=== PATIENT | male | born 1955 | race Caucasian/White ===

== ENCOUNTER 2019-10-21 13:56 | Emergency (ER) | payer BC, SELFPAY ==
--- NOTE | 2019-10-21 14:02 | ED.GENADULT ---
HPI - General Adult General Chief complaint: Extremity Injury, Lower Stated complaint: right knee injury Time Seen by Provider: 10/21/19 14:13 Source: patient Mode of arrival: ambulatory Limitations: no limitations History of Present Illness HPI narrative: 63-year-old male patient presents the [facility] care with complaints of a wound to the right knee x2 days. Patient states that he was on his hands and knees taking apart some pallets and states that he thinks he caught a nail to his right knee. Patient states he has been able to walk on it okay. Patient states it is slightly sore but did not have any pain with movement. Patient denies taking anything for the pain at this time. Patient states he has been using some hydrogen peroxide to clean the area. Patient states he thinks his last tetanus shot was around 6 years ago. Patient states he is here because he is concerned about possible infection. Denies being a diabetic Related Data Allergies Allergy/AdvReac Type Severity Reaction Status Date / Time No Known Allergies Allergy Mild Verified 10/21/19 14:05 Review of Systems Review of Systems: Narrative: CONSTITUTIONAL: Denies fever, chills, or sweats. EYES: Denies visual changes, redness, or discharge. ENT: Denies rhinorrhea, congestion, sore throat, or otalgia. CARDIOVASCULAR: Denies chest pain, palpitations, or edema. RESPIRATORY: Denies cough or dyspnea. GASTROINTESTINAL: Denies abdominal pain, nausea, vomiting, or diarrhea. GENITOURINARY: Denies dysuria or hematuria. SKIN: Denies rash or itching. Positive puncture wound to right knee x2 days MUSCULOSKELETAL: Denies back pain, joint pain, or myalgia. NEUROLOGIC: Denies headache, numbness, or weakness. PSYCHIATRIC: Denies anxiety or depression. PMFSH Past Medical History Medical History (Updated 10/21/19 @ 14:17 by RAFAEL Villafuerte) Hypothyroidism Surgical History Surgical History (Updated 10/21/19 @ 14:03 by RAFAEL Villafuerte) Hx of tonsillectomy Comments At the time of my signature I agree with nursing past medical history, surgical, social, and family history. There is no relevant family history pertinent to the presenting complaint. Exam Narrative: Exam Narrative: GENERAL: Well-appearing, well-nourished, and in no acute distress. HEAD: Normocephalic, atraumatic. EYES: PERRLA and EOMI. ENT: Nares clear, no rhinorrhea or epistaxis. Mucous membranes moist. NECK: Supple. No lymphadenopathy CHEST: Clear to auscultation. No respiratory distress. HEART: Regular rate and rhythm. No murmur heard. Normal peripheral pulses. ABDOMEN: Soft, nontender, nondistended, normal active bowel sounds. EXTREMITIES: Normal range of motion. No edema. SKIN: Warm, dry, no rash. Patient has small puncture wound that is scabbed over right on the top of the right patella. There is some surrounding erythema, some warmth and slight swelling. Patient has excellent range of motion to the knee and able to walk with a steady gait. NEURO: No focal deficits. Alert and oriented x3. Course Vital Signs Vital signs: Vital Signs Temperature 36.8 C 10/21/19 14:05 Pulse Rate 86 10/21/19 14:05 Respiratory Rate 18 10/21/19 14:05 Blood Pressure 123/77 10/21/19 14:05 Pulse Oximetry 98 10/21/19 14:05 Temperature 36.8 C 10/21/19 14:05 Pulse Rate 86 10/21/19 14:05 Respiratory Rate 18 10/21/19 14:05 Blood Pressure 123/77 10/21/19 14:05 Pulse Oximetry 98 10/21/19 14:05 Vital signs reviewed. Medical Decision Making Differential Diagnosis Differential Diagnosis: Differential diagnosis: Knee contusion, sprain, ligament injury, patellar dislocation, joint dislocation, patella or tibial plateau fracture, Abbott's cyst, DVT, meniscus tear, PCL tear, prepatellar bursitis, septic joint, gout, tumor. Children: [id number] or All-Schlatter disease. Discussed with patient that our plan of care today is to update his tetanus shot today. Discussed with hi
[2019-10-21 14:05] VITALS: BP 123/77; PULSE 86; RESP 18; TEMP 36.8; O2SAT 98
[2019-10-21] MEDS: TETANUS,DIPHTHERIA,AC PERTUSSIS ADULT 0.5 ML (ADACEL) IM (14:20)
== END 2019-10-21 14:20 | disposition home or self-care (01) ==
PROVIDERS: Emergency Provider Nurse Practitioner Family; PCP Family Medicine
DX: S81.031A Puncture wound without foreign body, right knee, initial encounter (principal); E03.9 Hypothyroidism, unspecified; Z23 Encounter for immunization; W45.0XXA Nail entering through skin, initial encounter
CPT/HCPCS: 90471; 90715; 99213; G0463